=== PATIENT | female | born 1970 | race Caucasian/White ===

== ENCOUNTER 2017-05-02 08:38 | Emergency (ER) | payer OTHER ==
[2017-05-02 09:49] LABS: Basophils % (Auto) 0.3 % (0.0-1.8); Eosinophils % (Auto) 0.5 % (0.0-4.3); Hematocrit 40.6 % (30.3-42.9); Hemoglobin 13.5 gm/dl (10.1-14.3); Mean Corpuscular HGB Conc 33 % (30-34); Mean Corpuscular Hemoglobin 30 pg (28-32); Mean Corpuscular Volume 89 fl (79-97); Platelet Count 233 K/mm3 (140-440); Red Blood Count 4.56 M/mm3 (3.65-5.03); White Blood Count 8.1 K/mm3 (4.5-11.0)
[2017-05-02 09:57] LABS: Alanine Aminotransferase 18 units/L (7-56); Albumin 4.3 g/dL (3.9-5); Albumin/Globulin Ratio 1.3 %; Alkaline Phosphatase 64 units/L (35-129); Anion Gap 17 mmol/L; BUN/Creatinine Ratio 22.85; Blood Urea Nitrogen 16 mg/dL (7-17); Calcium 9.2 mg/dL (8.4-10.2); Carbon Dioxide 25 mmol/L (22-30); Chloride 102.4 mmol/L (98-107); Glucose 158 mg/dL (65-100); Potassium 4.6 mmol/L (3.6-5.0); Sodium 140 mmol/L (137-145); Total Protein 7.5 g/dL (6.3-8.2)
[2017-05-02] MEDS ORDERED: NACL 0.9% 1000 ML 1,000 ML IV ONE ×2 (10:28→10:29)
[2017-05-02] MEDS ORDERED: PEPCID IV ONE (10:29)
[2017-05-02] MEDS ORDERED: BENADRYL IV ONE (10:29)
--- NOTE | 2017-05-02 10:34 | Emergency Department Report ---
ED Syncope HPI - General Chief Complaint: Syncope Stated Complaint: FEELING FAINT Time Seen by Provider: 05/02/17 10:22 Source: patient - History of Present Illness Initial Comments: 47-year-old female history of high blood pressure and hypothyroidism. She stated she woke up this morning preparing her breakfast and lunch work and she started having itching in her neck and then all of a sudden she started having dizziness in generalized body rash and itching and then she passed out for a few seconds. When the EMS picked up from her home her blood pressure was low 88/46. Patient denied any chest pain or shortness of breath no fever she stated that her symptoms is better but she still feel lightheaded. Timing/Prior Episodes: no prior history, single episode today Precipitating Factors: Positive: lightheadedness Context: standing Loss of Consciousness: brief (seconds) Current Symptoms: lightheadedness - Related Data Allergies/Adverse Reactions: Allergies seafood Adverse Reaction (Uncoded 05/02/17 08:52) Anaphylaxis Home Medications: Ambulatory Orders Atenolol [Tenormin] 25 mg PO DAILY #60 tab 05/27/14 ED Review of Systems ROS: Stated complaint: FEELING FAINT Other details as noted in HPI Comment: All other systems reviewed and negative Constitutional: denies: chills, fever ENT: denies: throat pain Respiratory: denies: cough, orthopnea, shortness of breath Cardiovascular: syncope. denies: chest pain, palpitations, dyspnea on exertion , orthopnea, edema, paroxysmal nocturnal dyspnea Gastrointestinal: denies: abdominal pain, nausea, vomiting, diarrhea, constipation, hematemesis Genitourinary: denies: urgency Neurological: weakness. denies: headache, numbness, paresthesias, confusion ED Past Medical Hx - Past Medical History Previous Medical History?: Yes Hx Hypertension: Yes Hx CVA: Yes Hx Asthma: Yes Additional medical history: Hyperthyroidism - Surgical History Past Surgical History?: Yes Hx Cholecystectomy: Yes Additional Surgical History: Tubal ligation, heart murmur - Social History Smoking Status: Never Smoker Substance Use Type: Prescribed - Medications Home Medications: Home Medications Medication Instructions Recorded Confirmed Last Taken Type Atenolol [Tenormin] 25 mg PO DAILY #60 tab 05/27/14 Unknown Rx ED Physical Exam - General Limitations: No Limitations General appearance: alert, in no apparent distress - Head Head exam: Present: atraumatic, normocephalic - Eye Eye exam: Present: normal appearance Pupils: Present: normal accommodation - ENT ENT exam: Present: normal exam - Neck Neck exam: Present: normal inspection. Absent: tenderness, meningismus, full ROM - Respiratory Respiratory exam: Present: normal lung sounds bilaterally. Absent: respiratory distress, wheezes, rales, rhonchi - Cardiovascular Cardiovascular Exam: Present: regular rate, normal rhythm, normal heart sounds - GI/Abdominal GI/Abdominal exam: Present: soft. Absent: distended, tenderness, guarding, rebound, rigid, normal bowel sounds, mass, bruit, pulsatile mass, hernia - Extremities Exam Extremities exam: Present: normal inspection, full ROM - Back Exam Back exam: Present: normal inspection. Absent: CVA tenderness (R), CVA tenderness (L) - Neurological Exam Neurological exam: Present: alert, oriented X3, CN II-XII intact, normal gait. Absent: abnormal gait, motor sensory deficit, reflexes normal - Skin Skin exam: Present: warm, intact, normal color. Absent: rash, cyanosis, diaphoretic, erythema, urticaria, vesicles, petechiae, pallor, ecchymosis ED Course Vital Signs 05/02/17 05/02/17 05/02/17 08:48 08:52 09:00 Temperature 98.0 F Pulse Rate 64 62 60 Respiratory 21 16 13 Rate Blood Pressure 98/62 105/69 O2 Sat by Pulse 97 97 Oximetry 05/02/17 05/02/17 05/02/17 09:15 09:30 09:45 Temperature Pulse Rate 64 67 71 Respiratory 18 21 13 Rate Blood Pressure 102/64 104/68 107/61 O2 Sat by Pulse 97 99 Oximetry 05/02/17 05/02/17 05/02/17 10:00 10:15 10:30 Temperature Pulse Rate 60 67 63 Respiratory 20 9 L 14 Rate Blood Pressure 106/64 92/54 102/69 O2 Sat by Pulse 98 98 Oximetry 05/02/17 05/02/17 05/02/17 10:45 11:00 11:15 Temperature Pulse Rate 69 64 66 Respiratory 12 16 21 Rate Blood Pressure 108/62 109/73 104/64 O2 Sat by Pulse 98 98 97 Oximetry 05/02/17 05/02/17 11:30 11:46 Temperature Pulse Rate 58 L 56 L Respiratory 19 14 Rate Blood Pressure 104/64 107/67 O2 Sat by Pulse 99 100 Oximetry - Reevaluation(s) Reevaluation #1: 05/02/17 13:53 Patient stated that she is feeling much better. Patient states she is not longer dizzy or having any shortness of redness no skin rash and exam lungs clear on both sides near exam is completely normal with no deficit. CTA test came back negative was no evidence of PE. I believe the patient sustained an allergic reaction from unknown cause all discharge patient home and follow-up with her primary care physician in the next 2-3 days. Patient also advised to return to the ER if her symptoms get worse. ED Medical Decision Making - Lab Data Result diagrams: 05/02/17 09:19 05/02/17 09:19 - EKG Data -: EKG Interpreted by Me EKG shows normal: sinus rhythm Rate: normal - EKG Data Interpretation: no acute changes - Radiology Data Radiology results: report reviewed CTA chest was no evidence of PE and no other acute abnormalities - Medical Decision Making Patient improved significantly with fluids and allergy medication. Patient is comfortable being discharged home. Critical care attestation.: If time is entered above; I have spent that time in minutes in the direct care of this critically ill patient, excluding procedure time. ED Disposition Clinical Impression: Syncope, Allergic reaction Disposition: DC-01 TO HOME OR SELFCARE Is pt being admited?: No Condition: Stable Instructions: Syncope (ED), Allergies (ED) Referrals: PRIMARY CARE, [Primary Care Provider] - 3-5 Days
[2017-05-02] MEDS ORDERED: NACL ONE (13:06)
[2017-05-02 13:10] LABS: Bacteria,Urine 4+ /HPF (Negative); Bilirubin,Urine NEG (Negative); Blood,Urine NEG (Negative); Ketones,Urine NEG (Negative); Leukocyte Esterase,Urine MOD (Negative); Mucus,Urine FEW /HPF; Nitrite,Urine NEG (Negative); Urobilinogen,Urine < 2.0 mg/dL (<2.0)
--- NOTE | 2017-05-02 13:42 | Cat Scan Report ---
CTA CHEST: History: chest pain Technique: Helical CT following IV contrast. Pulmonary embolus protocol. Sagittal and coronal reformatted images. Rotational MIP images. Findings: Contrast bolus is satisfactory. No pulmonary embolus is identified. The thyroid gland, tracheobronchial tree, esophagus, heart, pericardium, mediastinal vessels, lung anton and bony thorax are unremarkable. Impression: No evidence for pulmonary embolus. Unremarkable CT chest with contrast.
[2017-05-02 14:41] VITALS: BP 123/77
== END 2017-05-02 14:39 | disposition home or self-care (01) ==
LOC: ED 08:38
DX: R55 Syncope and collapse (principal); T78.40XA Allergy, unspecified, initial encounter; Z86.73 Personal history of transient ischemic attack (TIA), and cerebral infarction without residual deficits; I10 Essential (primary) hypertension; J45.909 Unspecified asthma, uncomplicated; E05.90 Thyrotoxicosis, unspecified without thyrotoxic crisis or storm; Z91.013 Allergy to seafood
CPT/HCPCS: 36415; 71275; 80053; 81001; 84484; 84703; 85025; 85379; 93005; 93010; 96361; 96374; 96375; 99285; J1200; J2930; J7030; Q9967

== ENCOUNTER 2018-08-07 17:29 | Emergency (ER) | payer OTHER ==
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
[2018-08-07] MEDS ORDERED: MOTRIN PO ONE (21:09)
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
--- NOTE | 2018-08-07 23:15 | XRay Report ---
FINAL REPORT PROCEDURE: Lumbar spine. TECHNIQUE: AP and lateral views. HISTORY: Low back pain. COMPARISON: No prior studies are available for comparison. FINDINGS: The lumbar vertebrae have normal height and alignment. There are no fractures. There is no spondyloli sthesis. There is moderate disc space narrowing at L5-S1. The sacrum and sacroiliac joints are unrema rkable. IMPRESSION: Degenerative disc space narrowing at L5-S1.
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
[2018-08-08 00:02] VITALS: BP 143/88
== END 2018-08-08 00:03 | disposition home or self-care (01) ==
LOC: ED 17:29
DX: S16.1XXA Strain of muscle, fascia and tendon at neck level, initial encounter (principal); R51 Headache; J45.909 Unspecified asthma, uncomplicated; E05.90 Thyrotoxicosis, unspecified without thyrotoxic crisis or storm; Z90.49 Acquired absence of other specified parts of digestive tract; Z98.51 Tubal ligation status; Z91.013 Allergy to seafood; V49.49XA Driver injured in collision with other motor vehicles in traffic accident, initial encounter; Y93.89 Activity, other specified; Y92.488 Other paved roadways as the place of occurrence of the external cause; Y99.8 Other external cause status
CPT/HCPCS: 70450; 72100; 72125; 99284